=== PATIENT | female | born 1965 | race Caucasian/White ===

== ENCOUNTER → 2018-05-22 | Outpatient (CLI) | payer OTHER ==
[~2018-05-22] MED LIST: LIPITOR20 MG PO; NORCO 5-325 TA1 EACH PO; VIVELLE-DOT1 EAC1 TD
== END ==
LOC: M.ULTRA 10:00 → M.RAD 15:21 → M.ULTRA 15:21
DX: M25.462 Effusion, left knee (principal); M79.672 Pain in left foot; R60.0 Localized edema

== ENCOUNTER → 2020-12-31 | Outpatient (CLI) | payer OTHER | END | disposition home or self-care (01) | LOC: M.RAD 13:00 | PROVIDERS: ATTEND Orthopaedic Surgery | DX: M25.551 Pain in right hip (principal); M16.11 Unilateral primary osteoarthritis, right hip; Z79.899 Other long term (current) drug therapy; Z88.2 Allergy status to sulfonamides; Z88.6 Allergy status to analgesic agent ==